=== PATIENT | male | born 1945 | race Caucasian/White ===

== ENCOUNTER 2017-11-24 09:47 | Outpatient (CLI) | payer OTHER | END 2017-11-24 09:51 | disposition home or self-care (01) | LOC: SONOGRAMA 09:47 | DX: E04.2 Nontoxic multinodular goiter (principal) ==

== ENCOUNTER 2018-08-07 07:35 | Outpatient (CLI) | payer OTHER | END 2018-08-07 07:41 | disposition home or self-care (01) | LOC: TOM 07:35 | DX: K63.5 Polyp of colon (principal); Z86.010 Personal history of colon polyps; I48.91 Unspecified atrial fibrillation; Z90.5 Acquired absence of kidney ==